=== PATIENT | male | born 2005 | race Two or more races ===

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

== ENCOUNTER 2025-01-15 00:25 | Emergency (ER) | payer SELFPAY ==
[2025-01-15 00:27] VITALS: BMI 21.2
[2025-01-15 00:41] VITALS: BP 131/80; PULSE 67; RESP 16; TEMP 36.6; O2SAT 97
--- NOTE | 2025-01-15 01:49 | EDNOTE_ITS ---
ED Male Genitalurinary RME/HPI General Chief complaint: Abdominal Pain Stated complaint: RIGHT GROIN PAIN Time Seen by Provider: 01/15/25 01:43 Arrival date/time: 01/15/25 00:25 19M with no significant PMH presents to ED with 3 months of intermittent R groin/lower ab pain that is worse with movement. No inciting event that he can remember. Patient denies genital pain, dysuria, and penile discharge. Limitations: no limitations Related Data Home Medications ?Medication ?Instructions ?Recorded ?Confirmed MULTIVITAMIN (MULTI VITAMIN DAILY) PO QDAY ##0 4 ascorbic acid (vitamin C) 500 mg 500 mg PO QDAY #0 tab s 04/11/14 tablet (Vitamin C) ferrous sulfate 325 mg (65 mg 325 mg PO QDAY #0 tabs 0 04/11/14 iron) tablet (Feosol) lorazepam 0.5 mg tablet 0.5 mg PO HS #0 tabs 4 melatonin 1 mg tablet 1 mg PO HS PRN INSOMNIA #0 t abs 04/11/14 sertraline 25 mg tablet (Zoloft) 37.5 mg PO QDAY #0 ta bs 04/11/14 Previous Rx's ?Medication ?Instructions ?Recorded ibuprofen 100 mg/5 mL oral 5 ml PO Q8HR PRN pain #120 mL 11/20/17 suspension (Children's Motrin) ondansetron 4 mg disintegrating 4 mg PO Q8H PRN nausea and 10/13/24 tablet vomiting #10 tabs Allergies Allergy/AdvReac Type Severity Reaction Status Date / Time No Known Allergies Allergy Verified 01/15/25 00:27 Review of Systems Review of Systems Systems Reviewed: All systems reviewed, normal except as documented Constitutional Constitutional: Reports system reviewed and no additional complaints, except as documented, Denies fever(s) and Denies headache(s) ENT Ears, Nose, Mouth, and Throat: Denies disequilibrium and Denies headache(s) Cardiovascular Cardiovascular: Reports system reviewed and no additional complaints, except as documented, Denies chest pain and Denies dyspnea Respiratory Respiratory: Reports system reviewed and no additional complaints, except as documented, Denies cough and Denies dyspnea Gastrointestinal Gastrointestinal: Reports system reviewed and no additional complaints, except as documented, Denies abdominal pain, Denies nausea and Denies vomiting Neurologic Neurologic: Reports system reviewed and no additional complaints, except as documented, Denies confusion, Denies disequilibrium and Denies headache(s) Psychiatric Psychiatric: Denies confusion Past Medical History Social History SMOKING STATUS: Never smoker ED Exam General Limitations: Present no limitations General appearance: Present alert and in no apparent distress Head Head exam: Present atraumatic Eye Eye exam: Present normal appearance, PERRL and EOMI ENT ENT exam: Present normal exam, normal oropharynx and mucous membranes moist Neck Neck exam: Present normal inspection, full ROM and trachea midline Chest Chest inspection: Present normal inspection and symmetric chest wall rise Respiratory Respiratory exam: Present normal lung sounds bilaterally Cardiovascular Cardiovascular exam: Present regular rate, normal rhythm and normal heart sounds Abdominal Exam Abdominal exam: Present soft and normal bowel sounds Extremities Exam Extremities exam: Present normal inspection and full ROM Back Exam Back exam: Present normal inspection and full ROM Neurological Exam Neurological exam: Present alert, oriented X3 and CN II-XII intact Psychiatric Psychiatric exam: Present normal affect and normal mood Skin Skin exam: Present warm, dry, intact and normal color Course Quality Measures none Vital Signs Vital signs: Vital Signs Temperature 98 F 01/15/25 00:41 Pulse Rate 67 01/15/25 00:41 Respiratory Rate 16 01/15/25 00:41 Blood Pressure 131/80 H 01/15/25 00:41 Pulse Oximetry (%) 97 01/15/25 00:41 Oxygen Delivery Method Room Air 01/15/25 00:41 O2 at 97% on RA and WNLs Urogenital - Male MDM Narrative MDM Narrative:: 19M with no significant PMH presents to ED with 3 months of intermittent R groin/lower ab pain that is worse with movement. No inciting event that he can remember. Patient denies genital pain, dysuria, and penile discharge. Physical exam with credit card control clerk with no obvious R inguinal canal mass. Gait normal. Patient is afebrile, calm, and alert. Patient prefers to get US outpatient for inguinal canal hernia. Central Station Operator given. Patient data External records reviewed:: [facility] previous records Clinical information provided by:: patient Social determinants that could affect healthcare access:: none Patient has the following chronic illnesses:: none How is presenting disease/condition affected by chronic disease/condition?: no chronic disease Evaluation data The following diagnostics were reviewed and interpreted by me:: other (specify) (none) Lab and/or radiology exams considered but not ordered:: not ordered Interpretation Summary: n/a Medications / Prescriptions Medications or Prescriptions considered but not ordered:: not ordered Medication administrations:: n/a Consultations Consultation(s) initiated? (list below): No Diagnosis Urogenital Male Differential Diagnosis: urinary tract infection, priapism, urethritis, epididymitis, genital herpes simplex, prostatitis, acute retention of urine and inguinal hernia (pain) Most likely diagnosis given after review of the tests above:: inguinal pain Admission Indicated Admission indicated?: not indicated Admission Request Was there a request for admission?: No Disposition Plan Disposition Plan: Discharge Discharge Attestation Discharge Attestation: The patient and all family members were given an opportunity to ask questions and understood the discharge instructions. Discharge instructions specifically effects, indications for sooner follow up or return to the emergency department, and the expected course of current diagnosis. Patient condition: Stable Discharge Plan Plan Patient Disposition: HOME (Self Care) Disposition Comment: Stable Prescriptions/Referrals Prescriptions/Med Rec: No Action ascorbic acid (vitamin C) [Vitamin C] 500 MG tablet 500 mg PO QDAY Qty: 0 sertraline [Zoloft] 25 MG tablet 37.5 mg PO QDAY Qty: 0 lorazepam 0.5 MG tablet 0.5 mg PO HS Qty: 0 ferrous sulfate [Feosol] 1 TAB tablet 325 mg PO QDAY Qty: 0 melatonin 1 MG tablet 1 mg PO HS PRN (Reason: INSOMNIA) Qty: 0 MULTIVITAMIN (MULTI VITAMIN DAILY) 1 EACH tablet PO QDAY Qty: 0 ibuprofen [Children's Motrin] 100 MG/5 ML suspension 5 ml PO Q8HR PRN (Reason: pain) Qty: 120 0RF ondansetron 4 mg tablet,disintegrating 4 mg PO Q8H PRN (Reason: nausea and vomiting) Qty: 10 0RF Problem List Clinical Impression: Inguinal pain Patient/Caregiver Discharge Instructions Additional Instructions: Please follow-up with PCP within 24-48 hours and return immediately if symptoms worsen. Follow-up outpatient and ask for inguinal canal US. Print Language: Surinamese Stand Alone Forms: Patient Portal Info Letter PA/CAKE PULLER Supervising Physician JESUSITA/CAKE PULLER Supervising Physician: Dr. Spear
== END 2025-01-15 01:50 | disposition home or self-care (01) ==
LOC: SERX 01:58
PROVIDERS: Emergency Provider Emergency Medicine; PCP Physician Assistant
DX: R10.31 Right lower quadrant pain (principal)
CPT/HCPCS: 99281